=== PATIENT | male | born 1960 | race African-American/Black ===

== ENCOUNTER 2018-11-09 12:02 | Emergency (ER) | payer BC, MEDICAID ==
[~2018-11-09] VITALS: Wt 102.5 kg
[2018-11-09 12:07] VITALS: BP 166/99; PULSE 79; RESP 18
--- NOTE | 2018-11-09 13:32 | ERD ---
ER Documentation Chief Complaint Chief Complaint RIGHT LEG PAIN X 2 WEEKS HPI 58-year-old male, with history of diabetes and hypertension, presents the emergency department, complaining of 2 weeks with progressive dull pain in the right lower extremity. The pain is constant, 6/10, radiates from the ankle to the groin. No history of trauma, no rashes, no fever, no testicular pain, no abdominal pain, no back pain. The patient reports being very concerned because a close friend because of "blood clots". The patient denies chest pain, no history of recent traveling, no shortness of breath or palpitations, no history of malignancy. ROS All systems reviewed and are negative except as per history of present illness. Medications Home Meds Active Scripts Acetaminophen* (Tylenol*) 325 Mg Tablet, 2 TAB PO Q6 PRN for PAIN AND OR ELEVATED TEMP, #20 TAB Prov:LOVELY BEAL MD 11/09/18 Ibuprofen* (Motrin*) 400 Mg Tab, 400 MG PO Q6H PRN for PAIN AND OR ELEVATED TEMP, #20 TAB Prov:LOVELY BEAL MD 11/09/18 Allergies Allergies: Coded Allergies: No Known Allergy (Unverified , 11/09/18) PMhx/Soc Past medical history of diabetes on insulin, hypertension on lisinopril. Medical and Surgical Hx: pt denies Surgical Hx Smoking Status: Never smoker FmHx Family History: diabetes; No coronary disease Physical Exam Vitals Vital Signs Date Temp Pulse Resp B/P (MAP) Pulse Ox O2 O2 Flow FiO2 Time Delivery Rate 11/09/18 98.1 79 18 166/99 99 12:07 (121) Physical Exam Const: No acute distress Head: Atraumatic Eyes: Normal Conjunctiva ENT: Normal External Ears, Nose and Mouth. Neck: Full range of motion. No meningismus. Resp: Clear to auscultation bilaterally Cardio: Regular rate and rhythm, no murmurs Abd: Soft, non tender, non distended. Normal bowel sounds Skin: No petechiae or rashes Back: No midline or flank tenderness Ext: No cyanosis, or edema Neur: Awake and alert Psych: Normal Mood and Affect Procedures/MDM Acute right leg pain: no red flags. Differential diagnosis include but not limited to: Musculoskeletal injury, arthritis, fracture, DVT; low suspicion for acute limb ischemia, septic arthritis, necrotizing fasciitis, compartment syndrome. Neurovascular exam grossly intact. no clinical findings suggestive of acute infectious process, no acute deformity, no edema, no rashes. Pertinent Data: Venous Doppler: Negative for DVT Physical examination and clinical presentation consistent most likely with derangement of the right leg. Results and clinical impression discussed with the patient who agrees with manag ement. The patient is stable to be treated outpatient and will be discharged home with recommendations for ice, rest and NSAIDs 3 times daily for 5 days and close monitoring. The patient was instructed to follow up with the primary care provider in the ne xt 48h. If symptoms persist, worsen or new symptoms develop, then patient should return to the ED immediately. Instructions explained and given to patient with acknowledgment and demonstrated understanding. Disclaimer: Inadvertent spelling and grammatical errors are likely due to EHR/dictation software use and do not reflect on the overall quality of patient care. Also, please note that the electronic time recorded on this note does not necessarily reflect the actual time of the patient encounter. Departure Diagnosis: Primary Impression: Pain of right leg Condition: Stable Additional Instructions: Thank you very much for allowing us to participate in your care. Your health and safety is our top priority at [facility]. The evaluation in the emergency department has been done to rule out an acute emergency, therefore, chronic conditions like malignancy or other diseases have not been evaluated; therefore, you need to follow up with a primary care provider in the next 48h. If symptoms persist, worsen or new symptoms develop, then patient should return to the ED immediately. Call your primary care doctor TOMORROW for an appointment during the next 2-4 days and bring all the information provided. Have prescriptions filled and follow precisely the directions on the label. If the symptoms get worse and your provider is unavailable, return to the Emergency Department immediately. LOVELY BEAL MD November 09, 2018 13:32
[2018-11-09] MEDS ORDERED: IBUP-1561 PO (14:17)
[2018-11-09] MEDS ORDERED: ACET325T33 PO (14:17)
== END 2018-11-09 14:26 | disposition home or self-care (01) ==
LOC: FTE 12:02
DX: M79.604 Pain in right leg (principal); I10 Essential (primary) hypertension; E11.9 Type 2 diabetes mellitus without complications; Z79.4 Long term (current) use of insulin
CPT/HCPCS: 93971